=== PATIENT | male | born 1955 | race Caucasian/White ===

== ENCOUNTER 2022-01-24 13:34 | Inpatient (IN) | payer MEDICARE, OTHER ==
[~2022-01-24] VITALS: Ht 167.6 cm; Wt 129.4 kg
[~2022-01-24 13:34] MED LIST: AUGMENTIN 875-1 EACH PO; BUMEX1 MG PO; POTASSIUM CHLO20 ME1 PO; SENIOR TABS1 EACH PO; [UNRECOGNIZED DRUG - OTHER] PO
[2022-01-24 15:06] LABS: BASOPHIL 0.5 % (0-2); EOSINOPHIL 0.9 % (0-7); HCT 41.4 % (42.0-52.0); LYMPHOCYTE 18.1 % (15-48); MCH 30.4 pg (25.0-31.0); MCHC 33.8 g/dL (32.0-36.0); MONOCYTE 11.3 % (0-12); MPV 9.4 fL (6.0-9.5); NEUTROPHIL 68.9 % (41-80); NRBC 0; PLT 170 K/uL (150-400); RDW 14.1 % (11.5-14.0); WBC 7.4 K/uL (4.0-10.5)
[2022-01-24 15:16] LABS: ALBUMIN 3.6 g/dL (3.4-5.0); BILIRUBIN - TOTAL 0.4 mg/dL (0.2-1.0); BUN/CREAT RATIO (CALC) 20.7 RATIO; CREATININE 0.87 mg/dL (0.67-1.17); GLOBULIN (CALCULATION) 3.3 g/dL; POTASSIUM 3.4 mmol/L (3.5-5.1); TOTAL PROTEIN 6.9 g/dL (6.4-8.2)
[2022-01-24 15:27] LABS: LACTIC ACID 1.1 mmol/L (0.4-1.9)
[2022-01-24 16:29] LABS: BILIRUBIN NEGATIVE (NEGATIVE); BLOOD NEGATIVE Ery/uL (NEGATIVE); CLARITY CLEAR (CLEAR); COLOR YELLOW (YELLOW); GLUCOSE (U) NORMAL (NORMAL); LEUKOCYTES NEGATIVE Leu/uL (NEGATIVE); NITRITE NEGATIVE (NEGATIVE); PROTEIN NEGATIVE (NEGATIVE); SPECIFIC GRAVITY 1.025 (1.001-1.030); UROBILINOGEN 0.2 mg/dL (0.2-1.0); pH 5.5 (5.0-9.0)
[2022-01-24] MEDS ORDERED: METOPROLOL SUCC50 MG PO (20:26)
[2022-01-25 06:04] LABS: HCT 41.8 % (42.0-52.0); MCH 30.4 pg (25.0-31.0); MCHC 33.5 g/dL (32.0-36.0); MCV 90.7 fL (78.0-100.0); MPV 9.3 fL (6.0-9.5); RBC 4.61 M/uL (4.70-6.00); RDW 14.3 % (11.5-14.0); WBC 7.6 K/uL (4.0-10.5)
[2022-01-25 06:50] LABS: BUN/CREAT RATIO (CALC) 19.3 RATIO; CREATININE 0.83 mg/dL (0.67-1.17); POTASSIUM 3.3 mmol/L (3.5-5.1)
[2022-01-25 15:24] LABS: BILIRUBIN 1+ mg/dL (NEGATIVE); BLOOD NEGATIVE Ery/uL (NEGATIVE); COLOR YELLOW (YELLOW); GLUCOSE (U) NORMAL (NORMAL); LEUKOCYTES NEGATIVE Leu/uL (NEGATIVE); NITRITE NEGATIVE (NEGATIVE); PROTEIN NEGATIVE (NEGATIVE); SPECIFIC GRAVITY >=1.030 (1.001-1.030)
[2022-01-25 15:31] LABS: CLARITY CLOUDY (CLEAR)
--- NOTE | 2022-01-25 16:28 | NUR ---
01/25/22 Mr. Light lives alone. He has a C-PAP machine. He works 2 jobs and is able [email or web address] meet his financial obligations.
[2022-01-26 06:30] LABS: BASOPHIL 0.1 % (0-2); EOSINOPHIL 0 % (0-7); HCT 35.9 % (42.0-52.0); HGB 11.7 g/dl (13.2-18.0); LYMPHOCYTE 10.3 % (15-48); MCH 30.4 pg (25.0-31.0); MCHC 32.6 g/dL (32.0-36.0); MCV 93.2 fL (78.0-100.0); MONOCYTE 11.7 % (0-12); MPV 9.2 fL (6.0-9.5); NEUTROPHIL 77.5 % (41-80); NRBC 0; PLT 174 K/uL (150-400); RBC 3.85 M/uL (4.70-6.00); RDW 14.5 % (11.5-14.0); WBC 10.6 K/uL (4.0-10.5)
[2022-01-26 06:45] LABS: BUN/CREAT RATIO (CALC) 21.3 RATIO; CREATININE 0.89 mg/dL (0.67-1.17); MAGNESIUM 2.5 mg/dL (1.8-2.4); POTASSIUM 4.4 mmol/L (3.5-5.1)
[2022-01-27 06:58] LABS: BASOPHIL 0.2 % (0-2); EOSINOPHIL 0.5 % (0-7); HCT 30.5 % (42.0-52.0); LYMPHOCYTE 19.9 % (15-48); MCH 30.7 pg (25.0-31.0); MCHC 32.8 g/dL (32.0-36.0); MCV 93.6 fL (78.0-100.0); MONOCYTE 12.7 % (0-12); MPV 9.4 fL (6.0-9.5); NEUTROPHIL 66.1 % (41-80); NRBC 0; PLT 133 K/uL (150-400); RBC 3.26 M/uL (4.70-6.00); RDW 14.4 % (11.5-14.0); WBC 8.7 K/uL (4.0-10.5)
[2022-01-27 07:01] LABS: BUN/CREAT RATIO (CALC) 21.2 RATIO; CREATININE 0.85 mg/dL (0.67-1.17); MAGNESIUM 2.3 mg/dL (1.8-2.4); POTASSIUM 3.6 mmol/L (3.5-5.1)
[2022-01-27] MEDS ORDERED: POTASSIUM CHLO20 ME1 PO (10:39)
[2022-01-27] MEDS ORDERED: NORCO 5-325 TA1 EACH PO (10:39)
== END 2022-01-27 17:35 | disposition home or self-care (01) | DRG 336 ==
LOC: FER 13:34 → FMS 17:52
PROVIDERS: Emergency Medicine; Internal Medicine; Nurse Practitioner Acute Care; Surgery; ADMIT Internal Medicine
PROC: 0DNU0ZZ Release Omentum, Open Approach (ICD-10-PCS; principal; 2022-01-25 13:45)
PROC: 0WUF0JZ Supplement Abdominal Wall with Synthetic Substitute, Open Approach (ICD-10-PCS; 2022-01-25 13:45)
PROC: B24BZZZ Ultrasonography of Heart with Aorta (ICD-10-PCS; 2022-01-26)
DX: K43.6 Other and unspecified ventral hernia with obstruction, without gangrene (principal); Z68.42 Body mass index [BMI] 45.0-49.9, adult; K66.0 Peritoneal adhesions (postprocedural) (postinfection); E66.01 Morbid (severe) obesity due to excess calories; I10 Essential (primary) hypertension; Z20.822 Contact with and (suspected) exposure to COVID-19; K43.0 Incisional hernia with obstruction, without gangrene; E87.6 Hypokalemia; R60.0 Localized edema; Z90.49 Acquired absence of other specified parts of digestive tract; Z87.891 Personal history of nicotine dependence; Z83.3 Family history of diabetes mellitus; G47.33 Obstructive sleep apnea (adult) (pediatric); Z87.19 Personal history of other diseases of the digestive system; Z86.79 Personal history of other diseases of the circulatory system
CPT/HCPCS: 36415; 71045; 80048; 80053; 81003; 83605; 83690; 83735; 83880; 85025; 86850; 86900; 86901; 93005; 93970; 94010; C1713; C9113; J0694; J1100; J1170; J1650; J2250; J2405; J2704; J3010; J3480; J7120; Q9967; U0002